=== PATIENT | female | born 1985 | race Caucasian/White ===

== ENCOUNTER 2025-01-31 14:15 | Outpatient (AMB) | payer OTHER, SELFPAY ==
--- OUTSIDE RECORDS SUMMARY | 2025-01-29 13:30 | XMS_ITS | Encounter Summary ---
Author Organization [facility] [place] [address] Care Team Providers Care Gem Technician Name Role Phone Kirill Kim MD Primary Care Provider [phone] Reason for Visit * Imaging (Routine) - Authorized Specialty Diagnoses / Procedures Referred By Contac t Referred To Contact Cardiology Diagnoses Chest pressure Procedures Stress echocardiogram (TTE) exercise with PRN contrast, bubble, strain, and 3D order panel MN ECHOCARDIOGRAPHY TRANSTHORACIC 2D REST & STRESS W INTERPRETATION/REPORT MN ECHOCARDIOGRAPHY TRANSTHORACIC 2D REST & STRESS W/M-MODE MN DOPPLER ECHO COMPLETE MN ECHOCARDIOGRAPHY DOPPLER COLOR FLOW MAPPING MN CV TMST/BIKE MAX/SUBMAX CONTINUOUS ECG MON/PHARM STRESS SUPVSR ONLY MN TEST STRESS CARDIOVASCULAR TRACING ONLY MN CV STRESS TEST/BIKE CONT ECG MON/PHARM STRESS INTERP & REPORT ONLY Manny Collins MD Phone: tel: fax: [facility] Referral ID Status Reason Start Date Expiration Date V isits Requested Visits Authorized [id number] Authorized 01/09/2025 01/09/2026 1 1 Encounter Details Date Type Department Care Team (Late st Contact Info) Description 01/29/2025 1:30 PM EDT Ancillary Procedure [facility] - [address] [place] [address] Chest pressure Social History Tobacco Use Types Packs/Day Years Used Date Smoking Tobacco: Some Days Cigarettes Last attempted to quit: 04/02/2014 Smokeless Tobacco: Never Alcohol Use Standard Drinks/Week Comments Yes 1.7 (1 standard drink = 0.6 oz p ure alcohol) Housing Instability Answer Date Recorde d Are you worried that in the next 2 months you may not have stable housing? Patient declined 12/16/2024 Food Access & Nutrition Answer Date Rec orded Do you have access to a vari ety of food including fruits and vegetables? Patient declined 12/16/2024 Access to Healthcare Answer Date Record ed Within the last 3 months, ho w many times did you visit the emergency department for your medical care? 0 12/16/2024 Health Literacy Answer Date Recorded How often do you need to hav e someone help you when you read instructions, pamphlets, or other written material from your doctor or pharmacy? Never 12/16/2024 Caregiver: How often do you need to have someone help you when you read instructions, pamphlets, or other written material from your doctor or pharmacy? Not on file 12/16/2024 Financial Risk Answer Date Recorded How hard is it for you to pa y for the very basics like food, housing, medical care, and air conditioning / heating? Somewhat hard 12/16/2024 Transportation Answer Date Recorded Has the lack of transportati on kept you from meetings, work, or from getting things needed for daily living? Patient declined 12/16/2024 Has the lack of transportati on kept you from medical appointments or from getting medications? Patient declined 12/16/2024 Social Isolation Answer Date Recorded How often do you feel lonely or isolated from those around you? Patient declined 12/16/2024 Food Risk Answer Date Recorded Within the past 12 months we worried whether our food would run out before we got money to buy more. Patient declined 025 Within the past 12 months th e food we bought just didn't last and we didn't have money to get more. Patient declined 12/01 Dependent Care Answer Date Recorded Do you need help finding or paying for care for your loved ones. For example, child welfare assistant or elderly care for an older adult? No 12/16/2024 Education Answer Date Recorded Do you think completing more education or training, like finishing a GED, going to college, or learning a trade, would be helpful for you? Patient declined 12/16/2024 Employment and Income Answer Date Recor ded During the last four weeks, have you been actively looking for work? Patient declined 12/16/2024 Living Situation Answer Date Recorded What is your living situation? Unrecognized valu e 12/16/2024 Comments Unknown Sex and Gender Information Value Date Recorded Sex Assigned at Female 12/19/2024 9:28 PM EDT Legal Sex Female 12:06 AM EST Gender Identity Female 09/26/2024 8:08 AM EDT Sexual Orientation Not on file documented as of this encounter Last Filed Vital Signs Vital Sign Reading Time Taken Comments Blood Pressure 132/82 01/29/2025 2:24 PM EDT Pulse - - Temperature - - Respiratory Rate - - Oxygen Saturation - - Inhaled Oxygen Concentration - - Weight 74.4 kg (164 lb) 01/29/2025 2:24 PM EDT Height 154.9 cm (5' 1 ) 01/29/2025 2:24 PM EDT Body Mass Index 30.99 01/29/2025 2:24 PM EDT documented in this encounter Plan of Treatment Upcoming Encounters Date Type Department Care Team (Late st Contact Info) Description 02/14/2025 3:00 PM EDT Office Visit Internal Medicine - [address] [place] [address] Jw Phillips, [address] [place] [address] documented as of this encounter Procedures Procedure Name Priority Date/Time Associated Diagnosis Comments STRESS ECHOCARDIOGRAM EXERCISE Routine 01/29/2025 2:26 PM EDT Chest pressure documented in this encounter Results * STRESS ECHOCARDIOGRAM EXERCISE (01/29/2025 2:26 PM EDT) IVSD 0.8 0.6 - 0.9 cm CV PACS STRESS LVIDD 3.8 3.8 - 5.2 cm CV PACS STRESS LVIDS 2.3 2.2 - 3.5 cm CV PACS STRESS LVPWD 0.8 0.6 - 0.9 cm CV PACS STRESS Relative Wall Thickness ratio 0.42 CV PACS STRESS FS 39 % CV PACS STRESS LV Mass 2D 86 g CV PACS STRESS LVIDD Index 2.18 cm/m2 CV PACS STRESS LVIDS Index 1.32 cm/m2 CV PACS STRESS LV Mass Index 2D 49 g/m2 CV PACS STRESS BSA 1.79 m2 CV PACS STRESS Target HR 153 bpm CV PACS STRESS Exercise/inject ion duration (min) 6 min CV PACS STRESS Exercise/inject ion duration (sec) 0 sec CV PACS STRESS Baseline HR 102 bpm CV PACS STRESS Peak HR 157 bpm CV PACS STRESS Estimated workload 7.1 METS CV PACS STRESS Percent HR 87 % CV PACS STRESS Max HR Percent 87 % CV PA CS STRESS ST Depression (mm) 0 mm CV PACS STRESS Baseline SBP 128 mmHg CV PACS STRESS Baseline DBP 82 mmHg CV PACS STRESS Peak SBP 144 mmHg CV PACS STRESS Peak DBP 62 mmHg CV PACS STRESS Rate Pressure Product 22,608.0 mmHg*bpm CV PACS STRESS Anatomical Region Laterality Modality Ultrasound Narrative 01/30/2025 1:18 PM EDT Normal exercise echocardiogram stress test at a target heart rate. Stress ECG was normal. Resting echo see below. The calcified structure adjacent to lateral right atrial wall beneath tricuspid valve is again visualized. Left Ventricle Left ventricle cavity size is normal. Wall thickness is normal. Systolic function is normal with an ejection fraction of 55-60%. There are no regional LV wall motion abnormalities. Right Ventricle Right ventricle cavity appears normal. Systolic function is normal. Right Atrium Right atrium cavity is normal. The calcified structure adjacent to lateral right atrial wall beneath tricuspid valve is again visualized. Study Details Overall the study quality was technically difficult. Patient declined use of left ventricular opacification agent to enhance imaging. Study was difficult due to: patient body habitus. Stress Findings A Maxwell protocol stress test was performed. Overall, the patient's exercise capacity was below average. The patient reached stage 2. Total stress time was 6 min and 0 sec. The test was stopped because the patient experienced fatigue. Blood pressure demonstrated a normal response. Heart rate demonstrated a normal response. Patient had constant chest discomfort prior to arrival which did not change throughout the testing ECG 39-year-old female with history of pulmonary embolism, right-sided breast cancer, and history of blood clot in the right atrium. In 2018 there was a discrete mass adjacent to the tricuspid valve which was thought to be structure left or from the Port-A-Cath. It was believed that the structure had become calcified and fibrotic. Patient presents today for stress echocardiogram to evaluate exertional shortness of breath and persistent chest discomfort. The ECG shows sinus tachycardia. The ECG axis is normal. There were no arrhythmias during stress. There is no ST segment changes during stress. There were no arrhythmias during recovery. There were no ST changes. The result of the stress ECG was negative for ischemia. Echo Post Stress Left ventricular cavity size decreased from baseline. Left ventricular systolic function improved from baseline. Normal wall motion, unchanged from baseline. us Manny Collins MD CV ECHO PROCEDURES Final Result documented in this encounter Visit Diagnoses Diagnosis Chest pressure Other chest pain documented in this encounter Additional Health Concerns Assessment Noted Time PHQ-9 Depression Total Score: 13 12/19/ 025 3:33 PM EDT documented as of this encounter Care Teams Gem Technician Relationship Specialty Start Date End Date Kirill Kim MD [address] [place] [address] PCP - General Internal Medicine 09/22/24 documented as of this encounter
--- NOTE | 2025-01-31 14:20 | A.OFFVIS_ITS ---
Vital Signs 3 01/31/25 14:23 Height 5 ft 1 in Weight 163 lb 8 oz BMI 30.9 BP 128/90 H Blood Pressure Location Rt brachial Position Sitting Pulse 96 Pulse Source Pulse Oximeter Pulse Oximetry (%) 97 Oxygen Delivery Method Room Air Intake Visit Reasons: Bronchitis Allergies doxycycline Allergy (Intermediate, Verified 01/31/25 14:26) Rash soy Allergy (Verified 01/31/25 14:26) Anaphylaxis nuts Allergy (Unknown, Uncoded 01/31/25 14:26) Unknown HPI HPI Bronchitis: Details: Elly is a pleasant 39 year old female, current 15 pack year smoker, with underlying h/o unprovoked PE completed coumadin x 1 year(?2012), right breast cancer 2017 s/p surg/chemo/rad (Dr Chris). She was referred by PCP for pulmonary evaluation for abnormal finding on chest CT. She was seen at an urgent care on 12/11 prescribed prednisone, mucinex and albuterol MDI for bronchitis. CXR revealed nodular opacity of LLL with recommendations for chest CT which she had performed on 12/22 and revealed small ggo of FORTINO, RML and RLL, ultimately diagnosed pneumonia requiring antibiotics. She experienced adverse reactions to prednisone, including increased heart rate, and was unable to tolerate it. Her respiratory symptoms have improved, but she continues to experience a morning cough with clear mucus production. Denies any dyspnea or wheezing. Denies prior history of asthma or COPD. She reports 2 occurrences of blood clots 1 unprovoked PE treated with Coumadin as well as another blood clot related to Port-A-Cath placement while under treatment for breast cancer. She is under the care of Hematology/Oncology at [facility] in reportedly underwent hypercoagulable workup which was unremarkable. She reports abnormal finding of tricuspid valve calcification and is under the care of cardiology at [facility] underwent echo and stress test which were unremarkable and will plan to have cardiac MRI for further evaluation. She has a history of breast cancer treated with chemotherapy, radiation, and surgery on the right side. The patient is currently experiencing perimenopausal symptoms, including night sweats and weight loss, attributed to stress and previous cancer treatments. The patient has a significant smoking history, having smoked for approximately 15 years, and reports occasional smoking currently. She also reports allergies and has a dog at home, with previous allergy testing done years ago. Denies any pertinent family history. [facility] Social History (Updated 01/31/25 @ 14:25 by Suzie Akhtar CMA) Patient Tobacco Use Status: Current everyday Tobacco user Cigarette Packs Per Day: 0.5 Cigarettes Per Day: 10 Review of Systems Const Denies chills, Denies excessive sweating, Denies fever(s), Denies headache(s) and Denies night sweats Eyes Denies dry eyes, Denies irritation and Denies itchy eyes ENT Reports Normal hearing present, Denies headache(s), Reports nasal discharge and Reports post nasal drip Card Denies chest pain, Denies chest pain at rest, Denies chest pain with activity, Denies claudication, Denies leg edema, Denies dyspnea, Denies dyspnea on exertion, Denies orthopnea and Denies paroxysmal nocturnal dyspnea Resp Denies change in phlegm color, Denies chest congestion, Reports cough, Denies excessive phlegm production, Denies pain on inspiration, Denies pain with cough, Denies dyspnea, Denies dyspnea on exertion, Denies stridor and Denies wheezing Musc Denies myalgias Neuro Reports Normal hearing present and Denies headache(s) Endo Denies excessive sweating Edu/Lymph Denies lymphadenopathy Aller/Immun Denies itchy eyes, Denies seasonal rhinorrhea and Denies wheezing Physical Exam Vital Signs: Last Vital Signs Pulse 96 01/31/25 14:23 BP 128/90 H 01/31/25 14:23 Pulse Ox 97 01/31/25 14:23 Oxygen Delivery Method Room Air 01/31/25 14:23 BMI result Body Mass Index 30.9 Const General: cooperative, healthy appearing, comfortable, no acute distress, well developed and alert Nutritional Appearance: obese Orientation/consciousness: patient oriented x3 Limitations: no limitations HEENT Head: Yes normal to inspection, Yes normocephalic and Yes atraumatic Ears: hearing grossly normal bilaterally and external ears normal Eyes General: appearance normal, both eyes and all related structures Eyelids: Yes eyelids normal Sclerae: sclerae normal EOM: EOMs intact bilaterally Neck Neck: Yes normal visual inspection and Yes no lymphadenopathy Lymphatic: no lymphadenopathy noted Chest Chest palpation & inspection: normal inspection of the chest Resp Effort & Inspection: normal respiratory effort, able to speak in complete sentences, no audible wheezes, no cough, no stridor, not tachypneic, no tripod positioning and no use of accessory muscles Auscultation: clear to auscultation bilaterally Cardio Jugular venous distension: no JVD Rate: regular rate Rhythm: regular rhythm Skin Other: warm, dry General skin exam: no rashes or lesions noted Neuro General: patient oriented x3 Cranial nerves: Yes Normal hearing present Cognition (Neuro): normal cognition Gait exam (Neuro): Normal gait present Extrem General: Yes normal to inspection, Yes capillary refill normal, Yes no clubbing, cyanosis or edema and Yes no pedal edema Psych Appearance: grossly normal and well kempt Speech and movement: Normal speech and movement present and Clear speech present Affect: normal affect Attitude: cooperative Thought process: Normal thought process present Thought content: Normal thought content present Insight: Good insight present (Psych) Judgement: Good judgement present (Psych) Results Reviewed Results Reviewed: Assessment & Plan Assessment & Plan (1) Chronic cough: Code(s): R05.3 - Chronic cough Category: Medical (2) Environmental allergies: Code(s): Z91.09 - Other allergy status, other than to drugs and biological substances Category: Medical (3) Ground glass opacity present on imaging of lung: Code(s): R91.8 - Other nonspecific abnormal finding of lung field Category: Medical Plan Elly presents for pulmonary evaluation after recent chest CT revealed multiple ground-glass opacities, likely related to recent pneumonia which she was treated for and had significant improvement in symptoms. Will repeat chest CT to assess for resolution, she is requesting this order be sent to [facility]. Will also attempt to obtain images for review. She reports ongoing productive cough with clear sputum in history of bronchitis, possibly related to underlying asthma or smoking history. Will send for PFT for further evaluation, with levalbuterol as patient has difficulty tolerating albuterol. Likely some allergic component, will send for RAST testing. Advised the patient on the importance of smoking cessation and offered support for quitting, however not ready at this time. All questions were answered and patient is in agreement of plan. Will follow-up to review results or sooner if needed. Orders: Orders 2 Complete Blood Count Auto Diff 01/31/25 Z91.09 - Other allergy status, other than to drugs and biological substances CT chest wo IV con Today R91.8 - Other nonspecific abnormal finding of lung field PFT pulmonary function test Today R05.3 - Chronic cough Resp Allergy Profile Region I 01/31/25 Z91.09 - Other allergy status, other than to drugs and biological substances Immunoglobulin E 01/31/25 Z91.09 - Other allergy status, other than to drugs and biological substances Coding Level of Care Code New Pt Level 4 (44254) Diagnoses Chronic cough R05.3 Environmental allergies Z91.09 Ground glass opacity present on imaging of lung R91.8
[2025-01-31 14:23] VITALS: BP 128/90; PULSE 96; O2SAT 97; BMI 30.9
--- OUTSIDE RECORDS SUMMARY | 2025-01-31 15:29 | XMS_ITS | Encounter Summary ---
Author Organization [facility] [place] [address] Care Team Providers Care Freelance Photographer Name Role Phone Kirill Kim MD Primary Care Provider [phone] Reason for Visit * Reason Onset Date Comments Cardiac Valve Problem 01/02/2025 Encounter Details Date Type Department Care Team (Late st Contact Info) Description 01/02/2025 Telephone Internal Medicine - [address] [place] [address] Kirill Kim MD [address] [place] [address] Social History Tobacco Use Types Packs/Day Years [...] care for your loved ones. For example, child's nurse or elderly care for an older adult? [...] on file documented as of this encounter Progress Notes * Lynette Moctezuma MA - 01/02/2025 2:37 PM EDT Pt notified letter done. Sent to My Chart for pt. * Jeanine Scott NP - 01/02/2025 2:23 PM EDT Signed * Suzie Roca MA - 01/02/2025 1:32 PM EDT Letter pended for review. * Jeanine Scott NP - 01/02/2025 12:25 PM EDT Please set up the letter * Liz Barahona RN - 01/02/2025 10:16 AM EDT RN called and spoke to the patient who is concerned about the ECHO and she is worried it should happen stat. Patient going to [facility] on Friday 01/05 for her ECHO and her referral was marked STAT> Patient reported that the appt for Wednesday is the earliest she can get. The patient was advised if she is having worsening or new concerns she can go to the ER. The patient at this time will wait for her Wednesday appointment. The patient is also asking for an extension on her work note for next week, she reports her cough is getting a little better but every time she coughs she urinates slightly and would prefer to not goback to work until after the echo. Will send to covering provider who saw patient on 12/19 Jeanine Scott. * Harleen Ward - 01/02/2025 9:40 AM EDT Symptoms patient is presenting: pt c/o continued cardiac issues (pt has appt @ [facility] 01-05-25 for an echo) and feels that she can't wait that long for the echo. For ALL patients calling to schedule any appointment (routine, sick visit, follow up, consult, etc.) in the outpatient setting please ask the following questions: Do you have fever of higher than 101, sore throat with difficulty swallowing or severe shortness ofbreath? NO If YES to any of these above symptoms, send a message to triage and do not book. Red dot. If no, an audio or video visit should be booked. Have you had close contact with someone with Coronavirus in the last 14 days? NO Have you traveled abroad? NO Have you traveled recently to another state outside of [place], [place], [place], [place], [place], [place], [place]? NO o If yes, did you quarantine for 14 days or have a negative covid test? NO If yes to any of the above, patient is not to be scheduled in office until after 14 day quarantine or negative covid test. If pain or injury related was it due to an accident at work or from a motor vehicle accident? NO If yes, gather [employer] insurance information Date of accident/Injury: n/a How long has patient had these symptoms?: ongoing PCP: Dr Kim Payor: Wilfredo documented in this encounter Plan of Treatment Upcoming Encounters Date Type Department Care Team (Late st Contact Info) Description 02/14/2025 3:00 PM EDT Office Visit [facility] Medicine - [address] [address] Jw Phillips, [address] [place] [address] documented as of this encounter Visit Diagnoses Not on filedocumented in this encounter Additional Health Concerns Assessment Noted Time PHQ-9 Depression Total Score: 13 025 3:33 PM EDT documented as of this encounter Care Teams Freelance Photographer Relationship Specialty Start Date End Date Kirill Kim MD [address] [place] [address] [place] [address] PCP - General Internal Medicine 09/22/24 documented as of this encounter
--- OUTSIDE RECORDS SUMMARY | 2025-01-31 15:29 | XMS_ITS | Encounter Summary ---
Author Organization [facility] [place] [address] Care Team Providers Care Crusher Feeder Name Role Phone Kirill Kim MD Primary Care Provider [phone] Reason for Referral * Imaging (Routine) - Pending Review Specialty Diagnoses / Procedures Referred By Jesica t Referred To Contact Radiology Diagnoses Right atrial mass Procedures MR Cardiac Morphology and Function wo and w Contrast Manny Collins MD Phone: tel: fax: External Performed Referral ID Status Reason Start Date Expiration Date V isits Requested Visits Authorized [id number] Pending Review 01/30/2025 01/30/2026 1 1 Encounter Details Date Type Department Care Team (Late st Contact Info) Description 01/30/2025 Results Follow-Up [facility] - [address] [place] [address] Manny Collins MD [address] [place] [address] Social History Tobacco Use Types Packs/Day Years [...] care for your loved ones. For example, summer child caregiver or elderly care for an older adult? [...] on file documented as of this encounter Plan of Treatment Upcoming Encounters Date Type Department Care Team (Late st Contact Info) Description 02/14/2025 3:00 PM EDT Office Visit Internal Medicine - [facility] [address] [place] [address] Jw Phillips, [address] [place] [address] Scheduled Orders Name Type Priority Associated Diagnoses Orde r Schedule MR Cardiac Morphology and Function wo and w Contrast Cardiac CT/MRI Routine Right atrial mass Ordered: 01/30/2025 documented as of this encounter Visit Diagnoses Diagnosis Right atrial mass- Primary documented in this encounter Additional Health Concerns Assessment Noted Time PHQ-9 Depression Total Score: 13 025 3:33 PM EDT documented as of this encounter Care Teams Crusher Feeder Relationship Specialty Start Date End Date Kirill Kim MD [address] [place] [address] PCP - General Internal Medicine 09/22/24 documented as of this encounter
--- OUTSIDE RECORDS SUMMARY | 2025-01-31 15:29 | XMS_ITS | Encounter Summary ---
[facility] [address] Care Team Providers Care Component Technician Name Role Phone Kirill Kim MD Primary Care Provider [phone] Reason for Visit * Reason Onset Date Comments Medical Records 01/29/2025 Encounter Details Date Type Department Care Team (Late st Contact Info) Description 01/29/[address] [facility] Cardiology [facility] [address] [place] [address] Provider, Not In System Social History Tobacco Use Types Packs/Day Years [...] your loved ones. For example, child welfare caseworker or elderly care for an older adult? [...] as of this encounter Progress Notes * Ayanna Arzate - 01/29/2025 9:58 AM EDT Mailed 01/05/2025 Echo, 01/09/2025 Dr. Collnis OV, 01/22/2025 [facility]. Testing, 07/15/2017 Echo, 11/11/2016 Echo and 12/21/2016 Echo to Patient on 01/26/2025. documented in this encounter Plan of Treatment Upcoming Encounters Date Type Department Care Team (Late st Contact Info) Description 02/14/2025 3:00 PM EDT Office Visit Internal Medicine - [facility] [address] [place] [address] Jw Phillips, [place] [address] [place] [address] documented as of this encounter Visit Diagnoses Not on filedocumented in this encounter Additional Health Concerns Assessment Noted Time PHQ-9 Depression Total Score: 13 025 3:33 PM EDT documented as of this encounter Care Teams Component Technician Relationship Specialty Start Date End Date Kirill Kim MD [address] [place] [address] PCP - General Internal Medicine 09/22/24 documented as of this encounter
--- OUTSIDE RECORDS SUMMARY | 2025-01-31 15:29 | XMS_ITS | Encounter Summary ---
Author Organization [facility] [address] Care Team Providers Care Accounting Manager Controller Name Role Phone Kirill Kim MD Primary Care Provider [phone] Reason for Visit * Reason Onset Date Comments Appointment 01/11/2025 Encounter Details Date Type Department Care Team ([facility] st Contact Info) Description 01/11/2025 Telephone [facility] - [facility] [address] [facility] [address] [place] [id number] Manny Collins MD [address] [facility] [address] [place] [address] Social History Tobacco Use Types Packs/Day Years [...] for your loved ones. For example, child care development specialist or elderly care for an older adult? [...] as of this encounter Progress Notes * Suzy Manningdavid - 01/11/2025 7:54 AM EDT I left a message for the patient to offer the Vasc appt that is open today at 12:45pm. I told her to call back JACKY and we can get her in. documented in this encounter Plan of Treatment Upcoming Encounters Date Type Department Care Team (Late st Contact Info) Description 02/14/2025 3:00 PM EDT Office Visit Internal Medicine - [facility] [address] [place] [address] Jw Phillips, ORLIN [address] [place] [address] documented as of this encounter Visit Diagnoses Not on filedocumented in this encounter Additional Health Concerns Assessment Noted Time PHQ-9 Depression Total Score: 13 025 3:33 PM EDT documented as of this encounter Care Teams Accounting Manager Controller Relationship Specialty Start Date End Date Kirill Kim MD [address] [place] [address] PCP - General Internal Medicine 09/22/24 documented as of this encounter
--- OUTSIDE RECORDS SUMMARY | 2025-01-31 15:29 | XMS_ITS ---
Author Name [facility] Organization Unknown Care Team Organization Name Specialty Phone Email Start Date End [facility] Kirill Kim Primary Care 03/10/20222023
--- OUTSIDE RECORDS SUMMARY | 2025-01-31 15:29 | XMS_ITS | Encounter Summary ---
Author Organization [facility] [place] [address] Care Team Providers Care Chick Sexer Name Role Phone Kirill Kim MD Primary Care Provider [phone] Reason for Referral * Imaging (Emergency) - Authorized Specialty Diagnoses / Procedures Referred By Contac t Referred To Contact Cardiology Diagnoses Calcification of tricuspid valve Procedures Transthoracic echocardiogram (TTE) complete with PRN contrast, bubble, strain, and 3D order panel TX TTE W 2D IMAGE COMPLETE W DOPPLER ECHO & COLOR FLOW DOPPLER ECHO TX CHRISTOPHER 2D COMPLETE W/CONTRAST OR W & WO CONTRAST WITH DOPPLER Andrew Wilcox PA [address] [place] [address] Phone: tel: fax: [facility] Referral ID Status Reason Start Date Expiration Date V isits Requested Visits Authorized [id number] Authorized 12/28/2024 12/28/2025 1 1 Reason for Visit * Reason Onset Date Comments orders call 12/28/2024 Encounter Details Date Type Department Care Team (Late st Contact Info) Description 12/28/2024 Telephone Internal Medicine - [facility] [address] [place], [place] [phone] Kirill Kim MD [address] [facility] [place] [address] Social History Tobacco Use Types Packs/Day Years [...] have money to get more. Patient declined 08/1 10/2024 Dependent Care Answer Date Recorded Do you need help finding or paying for care for your loved ones. For example, child care aide or elderly care for an older adult? [...] Progress Notes * Lynette Moctezuma MA - 12/28/2024 4:16 PM EDT Pt notified referral sent * ORVILLE Dalton - 12/28/2024 4:12 PM EDT Order updated * Marimar Natarajan MA - 12/28/2024 3:10 PM EDT Order pended. * Bettye Tran - 12/28/2024 3:06 PM EDT Cardiovascular echocardiogram ordered bu Dr Kim has to be marked urgent or pt will have to wait 13 weeks to get in documented in this encounter Plan of Treatment Upcoming Encounters Date Type Department Care Team (Late st Contact Info) Description 02/14/2025 3:00 PM EDT Office Visit Internal Medicine - [facility] [address] [facility] [place] [address] Jw Phillips, [employer] [address] [place] [address] documented as of this encounter Results * TRANSTHORACIC ECHOCARDIOGRAM (TTE) COMPLETE (01/05/2025 1:17 PM EDT) Left Atrium Minor Grundy 4.5 cm CV PACS Left Atrium Major Grundy 4.7 cm CV PACS LA Area Sys (A2C) 12 cm2 CV PACS LA Area Sys (A4C) 14 cm2 CV PACS LA Volume (BP) 31 mL CV PACS LA Size 3.3 cm CV PACS RA Area 11.4 cm2 CV PACS RA 2D Volume 26 mL CV PACS AV Mean Gradient 3 mmHg CV PACS Ao VTI 20.8 cm CV PACS AV Peak Jordan 1.2 m/s CV PACS AV Peak Gradient 6 mmHg CV PACS AV Area Continuity Equation 1.9 cm2 CV PACS AV Area Peak Velocity 1.9 cm2 CV PACS Aortic Arch 2.2 cm CV PACS Ascending Aorta 3.2 cm CV PACS Aortic Sinus Valsalva 3.2 cm CV PACS IVC Proximal 1.7 cm CV PACS IVSD 0.7 0.6 - 0.9 cm CV PACS LVIDD 4.4 3.8 - 5.2 cm CV PACS LVIDS 2.9 2.2 - 3.5 cm CV PACS LVOT Diameter 1.8 cm CV PACS LVOT Mean Jordan 0.6 m/s CV PACS LVOT Mean Grad 2 mmHg CV PACS LVOT Mean Grad 2 mmHg CV PACS LVOT Peak VTI 15.7 cm CV PACS LVOT Peak Jordan 0.9 m/s CV PACS LVOT Peak Gradient 3 mmHg CV PACS LVPWD 0.7 0.6 - 0.9 cm CV PACS MV E' Tissue Velocity Lateral 12 cm/s CV PACS MV E' Tissue Velocity Septal 8 cm/s CV PACS LVOT Area 2.5 cm2 CV PACS LVOT Stroke Volume 40 mL CV PACS MV Deceleration Cannon 3.7 m/s2 CV PACS E Wave Deceleration Time 150 119 - 242 ms CV PACS MV PHT 44 ms CV PACS MV Peak A Jordan 0.69 m/s CV PACS MV Peak E Jordan 0.56 m/s CV PACS MV Mean Gradient 1 mmHg CV PACS MV Mean Gradient 1 mmHg CV PACS MV Mean Gradient 1 mmHg CV PACS MV Mean Gradient 1 mmHg CV PACS MV VTI 15.9 cm CV PACS Mitral Valve Max Velocity 0.8 m/s CV PACS MV Peak Gradient 2 mmHg CV PACS MV Area PHT 5.0 cm2 CV PACS MV Area Continuity Equation 2.5 cm2 CV PACS PV Acceleration Time 116 ms CV PACS PV Acceleration Time 109 ms CV PACS PV Acceleration Time 113 ms CV PACS PV Mean Gradient 1 mmHg CV PACS PV VTI 10.7 cm CV PACS PV Peak Velocity 0.8 m/s CV PACS PV Peak Gradient 2 mmHg CV PACS RV Diastolic Basal Dimension 2.9 2.5 - 4.1 cm CV PACS RV S' 9 cm/s CV PACS TAPSE 15 mm CV PACS E/E' Ratio Septal 7 CV PACS E/E' Ratio Averaged 6 CV PACS Relative Wall Thickness ratio 0.32 CV PACS LVOT:AV VTI Index 0.75 CV PACS FS 34 % CV PACS LV Mass 2D 92 g CV PACS MV VTI:LVOT VTI ratio 1.0 CV PACS LVOT flow 153 mL/s CV PACS AV Velocity Ratio 0.75 CV PACS E/A Ratio 0.8 CV PACS E/E' Ratio Lateral 5 CV PACS BSA 1.78 m2 CV PACS LA Volume Index (BP) 18 mL/m2 CV PACS LVIDD Index 2.54 cm/m2 CV PACS LVIDS Index 1.68 cm/m2 CV PACS LV Mass Index 2D 53 44 - 88 g/m2 CV PACS LVOT Stroke Index 23 mL/m2 CV PACS LA Dimension Index 2D 1.9 cm/m2 CV PACS RA 2D Volume Index 15 15 - 27 mL/m2 CV PACS ROSENDO Index (VTI) 1.11 cm2/m2 CV PACS ROSENDO Index (Pk Jordan) 1.10 cm2/m2 CV PACS Ascending Aorta Index 1.85 cm/m2 CV PACS Est. RA Pressure 3 mmHg CV PACS Anatomical Region Laterality Modality Ultrasound Narrative 01/05/2025 3:16 PM EDT Normal biventricular size and systolic function. Normal left ventricular regional wall motion with an ejection fraction of 60 to 65% Normal left ventricular diastolic function No hemodynamically significant valve disease. There is an irregularly shaped, heterogenous, predominantly calcified echodensity seen at the right atrium coming in and out of the plane of view that appears adherent to the interatrial septum at its posterior aspect. Differential includes calcified thrombus versus intracardiac mass/tumor. Less likely, this represents a remnant of some sort of catheter or indwelling device versus a vegetation. High-priority staff message sent to Andrew Wilcox recommending a cardiology consult for additional imaging-CHRISTOPHER versus cardiac MR versus both. Left Ventricle Left ventricle cavity size is normal. Wall thickness is normal. Systolic function is normal with an ejection fraction of 60-65%. There are no regional LV wall motion abnormalities. There is no diastolic dysfunction and normal left atrial pressure. Right Ventricle Right ventricle cavity appears normal. Left Atrium Left atrium cavity size is normal. Right Atrium Right atrium cavity is normal. 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 It is seen proximal to the tricuspid valve. It does not appear adherent to the valve at all. It does not interfere with valve function or motion. It is difficult to get accurate measurements as the mass comes in and out of the plane of view. Differential includes intracardiac tumor, calcified thrombus versus less likely cardiac vegetation or remnant of prior catheter or indwelling device IVC/SVC Inferior vena cava structure is normal. RA pressures is estimated to be 3 mmHg (IVC diameter <21 mm and decreases >50% during inspiration). Mitral Valve Mitral valve structure is normal. The leaflets exhibit normal excursion. There is no regurgitation or stenosis. Tricuspid Valve Tricuspid valve structure is normal. There is no regurgitation or stenosis. Cannot assess RVSP. Aortic Valve Number of aortic valve cusps cannot be determined. The leaflets are mildly thickened. There is no regurgitation or stenosis. Pulmonic Valve Pulmonic valve structure is normal. There is no regurgitation or stenosis. Ascending Aorta The aorta appears normal in size. Pericardium Pericardium appears normal. There is no pericardial effusion. Study Details Overall the study quality was adequate. us Andrew JACINTO CV ECHO PROCEDURES Juju l Result documented in this encounter Visit Diagnoses Diagnosis Calcification of tricuspid valve- Primary Calcification of tricuspid valve documented in this encounter Additional Health Concerns Assessment Noted Time PHQ-9 Depression Total Score: 13 025 3:33 PM EDT documented as of this encounter Care Teams Chick Sexer Relationship Specialty Start Date End Date Kirill Kim MD [address] [place] [address] PCP - General Internal Medicine 09/22/24 documented as of this encounter
--- OUTSIDE RECORDS SUMMARY | 2025-01-31 15:29 | XMS_ITS | Clinical Summary ---
Author Organization [facility] Address [address] [place] [address] Care Team Providers Care Master In Chancery Name Role Phone Chuy Call MD Primary Care Provider [phone] Allergies Active Allergy Reactions Criticality Noted Date Comments Iodinated Contrast Media 11/27/2016 Nuts 04/02/2020 Soy 04/02/2020 Medications Medication Sig Dispensed Refills Start Date End Date Status escitalopram (LEXAPRO) tablet 10 mg Take 10 mg by mouth daily. 0 Active Loratadine (CLARITIN) 10 MG CAPS Take by mouth. 0 Active EPINEPHrine 0.3 MG/0.3ML SOAJ Inject 0.3 mg into the muscle as needed. 0 Active Active Problems No known active problems Family History Medical History Relation Name Comments Cancer Cousin Cancer Father prostate Hypertension Father Deep vein thrombosis Maternal Aunt Deep vein thrombosis Maternal Grandfather Deep vein thrombosis Maternal Grandmother Relation Name Status Comments Cousin Father Maternal Aunt Maternal Grandfather Maternal Grandmother Social History Tobacco Use Types Packs/Day Years Used Date Smoking Tobacco: Some Days Smokeless Tobacco: Never Alcohol Use Standard Drinks/Week Comments Yes 2 (1 standard drink = 0.6 oz pur e alcohol) Sex and Gender Information Value Date Recorded Sex Assigned at Not on file Gender Identity Not on file Sexual Orientation Not on file Last Filed Vital Signs Vital Sign Reading Time Taken Comments Blood Pressure 148/101 03/06/2020 1:57 PM EST Pulse 102 03/06/2020 1:57 PM EST Temperature 37 C (98.6 F) 03/06/2020 1:57 PM EST Respiratory Rate - - Oxygen Saturation - - Inhaled Oxygen Concentration - - Weight 83.7 kg (184 lb 9.6 oz) 03/06/2020 1:57 P M EST Height 154.9 cm (5' 1 ) 03/06/2020 1:57 PM EST Body Mass Index 34.88 03/06/2020 1:57 PM EST Plan of Treatment Health Maintenance Due Date Last Done Comments Hepatitis B Vaccines (1 of 3 - 3-dose series) 1984 Hepatitis C Screening 1984 COVID-19 Vaccine (#1) 1984 Pneumococcal Vaccine (1 of 2 - PCV) 1990 Depression Screening 1996 Preventative Health Evaluation 2002 DTap / Tdap / Td (2 - Tdap) 12/02/2002 12/01/2002 Cervical Cancer Screening (P ap Smear) 2005 Influenza Vaccine (#1) 2025 RSV Ped < 20 months Aged Out No longe r eligible based on patient's age to complete this topic Care Teams Master In Chancery Relationship Specialty Start Date End Date Chuy Call MD [address] [place] [address] PCP - General Internal Medicine 11/20/16
--- OUTSIDE RECORDS SUMMARY | 2025-01-31 15:29 | XMS_ITS | Clinical Summary ---
Author Organization [facility] Address [address] [place] [address] Phone Care Team Providers Care Motor Equipment Lieutenant Name Role Phone Kirlil Kim MD Primary Care Provider [phone] Allergies Active Allergy Reactions Criticality Noted Date Comments Amoxicillin-Pot Clavulanate Other 06/13/19 15 Abdominal pain Cefuroxime Other 06/13/2014 rash Doxycycline Rash 06/18/2023 Nut - Unspecified 06/13/2014 Other 11/05/2023 Soy 04/02/2020 Medications albuterol HFA (PROAIR HFA ; PROVENTIL HFA ; VENTOLIN HFA) 90 mcg/actuation inhaler Inhale 2 Puffs into the lungs every 6 hours as needed for Cough or Wheezing. 4 Active loratadine 10 mg capsule Take 1 Capsule by mouth daily. 4 Active EPINEPHrine (EpiPen 2-Damian) 0.3 mg/0.3 mL injection Inject 1 Each as directed as needed for Other (for nut or soy allergy). 1 Active budesonide (PULMICORT) 180 mcg/actuation inhaler Inhale 1 puff by mouth 2 (two) times a day. Rinse mouth with water after use to reduce aftertaste and incidence of candidiasis. Do not swallow. 1 each Active Additional Information Patient not taking.Informant: Self, Reported on 01/09/2025 amLODIPine (NORVASC) 2.5 mg tablet Take 1 tablet (2.5 mg total) by mouth 1 (one) time each day. 30 each 11 5 01/10/20 26 Active Active Problems Problem Noted Date Diagnosed Date Right atrial mass 01/09/2025 Assessment & Plan (01/09/2025 5:37 PM EDT): The right atrial mass is likely from previous Port-A-Cath. The echocardiogram from 2018 showed a discrete mass adjacent to the tricuspid valve and was probably a structure left over from the Port-A-Cath. With the time, the structure probably became calcified and fibrotic and formed a more calcified structure. She is very anxious about this and the will be better modality for further evaluation. Orders: Ambulatory referral to Cardiology ECG 12 lead Vascular US duplex upper extremity venous bilateral; Future Transesophageal echocardiogram (CHRISTOPHER) with PRN contrast and 3D; Future Elevated LFTs 12/02/2023 Mixed hyperlipidemia 12/02/2023 Assessment & Plan (01/09/2025 5:37 PM EDT): Will update lipid profile. Breast deformity 07/31/2020 Obesity 07/31/2020 Macromastia 07/22/2020 Abnormal echocardiogram 11/13/2016 Overview (04/14/2024): 11/16 CHRISTOPHER shows that the portacath enters the atrium and goes all the way across and touches the opposite wall. At this poin there is a growth of tissue around the portacath with some calcified looking parts within it. Either reactionary growth/pannus or clot with some calcification. 07/18echo: calcified mass still present in RA Apparently resolved with removal of portacath Anxiety 09/23/2015 Overweight 09/23/2015 Pulmonary embolism on left 05/12/2014 Overview (01/31/2025): Provoked; no snf anticoagulation recommended 01/31/25 Regulatory IMO Update Resolved Problems Problem Noted Date Diagnosed Date Resolved Date History of COVID-19 04/29/2021 04/14/20 24 Encounters Date Type Department Care Team Description 01/30/2025 Results Follow-Up [facility] - [address] [place] [address] Manny Collins MD 01/29/2025 1:30 PM EDT Ancillary Procedure [facility] - [address] [place] [address] Chest pressure 01/29/2025 Telephone [facility] - [address] [place] [address] Provider, Not In System 01/23/2025 10:45 AM EDT Telemedicine [facility] - [address] [place] [address] Kirill Kim MD Anxiety (Primary Dx) 01/22/2025 12:45 PM EDT Ancillary Procedure [facility] - [address] [place] [address] Right atrial mass; Chest pressure 01/15/2025 Telephone [facility] - [facility] [place] [address] Kirill Kim MD 01/15/2025 Telephone [facility] - [address] [place] [address] Manny Collins MD 01/11/2025 Telephone [facility] - [address] [place] [address] Manny Collins MD 01/10/2025 Telephone [facility] - [address] [place] [address] Kirill Kim MD 01/10/2025 Telephone [facility] - [address] [place] [address] Manny Collins MD 01/09/2025 1:00 PM EDT Office Visit [facility] - [address] [place] [address] Manny Collins MD Other hyperlipidemia (Primary Dx); Right atrial mass; Chest pressure; Mixed hyperlipidemia 01/05/2025 12:30 PM EDT Ancillary Procedure [facility] - [address] [place] [address] Calcification of tricuspid valve 01/02/2025 Telephone [facility] - [facility] [address] [place], [place] [phone] Kirill Kim MD 12/28/2024 Telephone [facility] - [address] [place], [place] [phone] Kirill Kim MD 12/27/2024 Telephone [facility] [address] [place], [place] [phone] Kirill Kim MD 12/25/2024 Telephone [facility] [address] [facility] [place] [place] [phone] Kirill Kim MD 12/22/2024 8:58 AM EDT - 12/22/2024 11:59 PM EDT Hospital Encounter [facility] CT Scan [address] [place] [address] Lung nodule seen on imaging study Discharge Disposition: Home or Self Care 12/19/2024 3:30 PM EDT Telemedicine [facility] - [facility] [address] [place], [place] [phone] Jeanine Scott NP Bronchitis (Primary Dx); Smoking addiction; Elevated blood pressure reading 12/16/2024 2:12 PM EDT - 12/16/2024 11:59 PM EDT Hospital Encounter [facility] [address] [facility] [place] [place] [phone] Acute cough Discharge Disposition: Home or Self Care 12/16/2024 2:00 PM EDT Office Visit [facility] - [address] [address] Thomas Reddy PA Bronchitis (Primary Dx) from Last 3 Months Immunizations Immunization Administration Dates Next Due Hepatitis B (Zgobvtz-R-Hwqoe , Recombivax HB-Adult) 19yo and older 07/26/1996,03/21/1996,02/16/1996 Measles 12/14/1996 Meningococcal Polysaccharide 01/09/2005 Td Tetanus diptheria (Tdvax) 7yo and older 12/01 Surgical History Surgery Date Site/Laterality Comments TONSILLECTOMY PROCEDURE: HISTORICAL TONSILLECTOMY BREAST BIOPSY 2016 Right PROCEDURE: BX BREAST; PERC NEEDLE CORE W/IMAG GUID OTHER SURGICAL HISTORY 03/13/16 PROCEDURE: ---- OTHER ----; COMMENT: port placement OTHER SURGICAL HISTORY 08/28/16 Right PROCEDURE: ---- OTHER ----; COMMENT: lumpectomy, sentinel node biopsy OTHER SURGICAL HISTORY 01/27/2017 PROCEDURE: ---- OTHER ----; COMMENT: port-a-cath removal Medical History Medical History Date Comments Breast cancer, stage 1 ([facility]/ HCC V24, [facility]/HCC V28) 02/20/2016 DX:Breast cancer, stage 1 ([facility]); COMMENT: triple negative Family History Medical History Relation Name Comments Other: pulmonary embolism Aunt mo thers side Hypertension Father CA prostate (ag e 51), atrial fibrillation Other: BCC Maternal Grandfather also italia ng, 70s Other: pulmonary embolism Maternal Grandmother No Known Problems Mother Breast cancer Other 1 3rd cousin-mat ernal Lung cancer Other 2 2 gr uncles and 1 gr aunt-all smokers, 70s Coronary artery disease Paternal Grandfather Diabetes Neg Hx Relation Name Status Comments Aunt Father Alive Afib, HTN Maternal Grandfather Maternal Grandmother Mother Alive Endometriosis, spinal fusion Other 1 Other 2 Paternal Grandfather Social History Tobacco Use Types Packs/Day Years Used Date Smoking Tobacco: Some Days Cigarettes Last attempted to quit: 04/02/2014 Smokeless Tobacco: Never Tobacco Cessation:Ready to Q uit: Not Asked; Counseling Given: Not Answered Alcohol Use Standard Drinks/Week Comments Yes 1.7 [...] for your loved ones. For example, child psychometrist or elderly care for an older adult? [...] AM EDT Sexual Orientation Not on file Obstetrics History Last Filed Vital Signs Vital Sign Reading Time Taken Comments Blood Pressure 132/82 01/29/2025 2:24 PM EDT Pulse 93 01/09/2025 1:01 PM EDT Temperature 37.2 C (98.9 F) 12/16/2024 1:57 PM EDT Respiratory Rate - - Oxygen Saturation 96% 01/09/2025 1:01 PM EDT Inhaled Oxygen Concentration - - Weight 74.4 kg (164 lb) 01/29/2025 2:24 PM EDT Height 154.9 cm (5' 1 ) 01/29/2025 2:24 PM EDT Body Mass Index 30.99 01/29/2025 2:24 PM EDT Plan of Treatment Upcoming Encounters Date Type Department Care Team (Late st Contact Info) Description 02/14/2025 3:00 PM EDT Office Visit [facility] - [facility] [address] [place] [phone] Jw Phillips, [address] [place] [address] Health Maintenance Due Date Last Done Comments Pneumococcal Vaccine: Pediatrics (0 to 5 Years) and At-Risk Patients (6 to 49 Years) (1 of 2 - PCV) 2003 Cervical Cancer Screening: Pap Smear 2005 HPV Vaccines (1 - 3-dose SCDM series) 2011 DTaP,Tdap,and Td Vaccines (2 - Td or Tdap) 12/01/2012 12/01/2002 HIV Screening 04/10/2022 Hepatitis C Screening 04/10/2022 Breast Cancer Screening 09/26/2023 09/25/2022 COVID-19 Vaccine ( season) 2025 01/15/2022, 05/14/2021, 12/31/2020, Additional history exists Influenza Vaccine (#1) 2025 02/06/2021 Social Influencers of Health Screening 12/16/2025 12/16/2024 Cholesterol Screening (Lipid Panel) 12/01/2028 12/02/2023, 12/02/2023 RSV Immunization Adult Patients (1 - 1-dose 75+ series) 2059 Hepatitis B Vaccines Completed 07/26/1996, 03/21/1996, 02/16/1996 Meningococcal ACWY Vaccine Aged Out 01/09/2005 N o longer eligible based on patient's age to complete this topic Depression Screening Completed 12/19/2024 HIB Vaccines Aged Out No longer eligi ble based on patient's age to complete this topic Hepatitis A Vaccines Aged Out No long er eligible based on patient's age to complete this topic IPV Vaccines Aged Out No longer eligi ble based on patient's age to complete this topic MMR Vaccines Aged Out No longer eligi ble based on patient's age to complete this topic Meningococcal B Vaccine Aged Out No l onger eligible based on patient's age to complete this topic RSV Immunization Patients Under 20 months Aged Out No longer eligible based on patient's age to complete this topic Varicella Vaccines Aged Out No longer eligible based on patient's age to complete this topic Medical Devices Implanted Type Area Food Cart Attendant Device Identifier Shelf Expiration Date Model / Serial / Lot Marker Breast Biopsy 15g Rigid Ti Barrel [employer]dromark - [id number] - [id number] Implanted:Qty: 1 on 09/27/2024 by Hubert Elena MD at [facility] Imaging Implants Right: Breast DEVICOR [employer] [id number] 03/10/2027 4010-02- 15-T1 / [id number] / [id number] Procedures Procedure Name Priority Date/Time Associated Diagnosis Comments STRESS ECHOCARDIOGRAM EXERCISE Routine 01/29/2025 2:26 PM EDT Chest pressure VAS US DUPLEX UPPER EXT VENOUS BILAT Routine 01/22/2025 1:15 PM EDT Right atrial mass Chest pressure ECG 12-LEAD Routine 01/09/2025 1:06 PM EDT Right atrial mass TRANSTHORACIC ECHOCARDIOGRAM (TTE) COMPLETE STAT 01/05/2025 1:17 PM EDT Calcification of tricuspid valve CT CHEST WO CONTRAST Routine 12/22/2024 9:16 AM EDT Lung nodule seen on imaging study XR CHEST 2 VIEWS STAT 12/16/2024 2:23 PM EDT Acute cough LIPID PANEL Routine 12/02/2023 DX MAMMO INCL CAD UNI Routine 09/25/2022 12:21 PM EDT Other abnormal and inconclusive findings on diagnostic imaging of breast from Last 3 Months or Most Recently Relevant to Health Maintenance Results * STRESS ECHOCARDIOGRAM EXERCISE (01/29/2025 2:26 [...] Collins MD CV ECHO PROCEDURES Final Result * Vascular US duplex upper extremity venous bilateral (01/22/2025 1:15 PM EDT) Anatomical Region Laterality Modality Vascular, Abdomen Ultrasound Narrative 01/25/2025 8:18 AM EDT Right: 1. No deep vein thrombosis. 2. No superficial vein thrombosis. Left: 1. No deep vein thrombosis. 2. No superficial vein thrombosis. Right Upper Venous No evidence of deep vein thrombosis in the internal jugular vein, subclavian vein, axillary vein, brachial veins, basilic vein, cephalic vein, radial veins, and ulnar veins of the right arm. The vessels showed compressibility with normal Doppler flow. Left Upper Venous No evidence of deep vein thrombosis in the internal jugular vein, subclavian vein, axillary vein, brachial veins, basilic vein, cephalic vein, radial veins, and ulnar veins of the left arm. The vessels showed compressibility with normal Doppler flow. Supply Clerk Details A reaves scale, color and doppler analysis ultrasound was performed. During the study longitudinal and transverse views were obtained. Pulsed wave doppler was performed. Manny Collins MD CV VASCULAR PROCEDURES Final Res ult * ECG 12 lead (01/09/2025 1:06 PM EDT) Ventricular Rate ECG 94 BPM GEMUSE Atrial Rate 94 BPM GEMUSE P-R Interval 160 ms GEMUSE QRS Duration 68 ms GEMUSE Q-T Interval 342 ms GEMUSE QTc 427 ms GEMUSE P Wave Newman 55 degrees GEMUSE R Newman 69 degrees GEMUSE T Newman 45 degrees GEMUSE ECG Interpretation Normal sinus rhythm Normal ECG No previous ECGs available Confirmed by Arminda COLLINS YUFENG ([id number]) on 01/09/2025 2:45:20 PM GEMUSE 01/09/2025 1:06 PM EDT 01/09/2025 2:45 PM EDT us Manny Collins MD ECG ORDERABLES Final Result GEMUSE * TRANSTHORACIC ECHOCARDIOGRAM (TTE) COMPLETE (01/05/2025 1:17 PM EDT) Left Atrium Minor Newman 4.5 cm CV PACS Left Atrium Major Newman 4.7 cm CV PACS LA Area Sys [...] Volume 40 mL CV PACS MV Deceleration [place] 3.7 m/s2 CV PACS E Wave Deceleration [...] JACINTO CV ECHO PROCEDURES Juju l Result * CT Chest wo Contrast (12/22/2024 9:16 AM EDT) Anatomical Region Laterality Modality Body Computed Tomogra phy 12/27/2024 12:3 0 PM EDT Impressions 12/27/2024 12:37 PM EDT 1. The finding described on the comparison radiographs was secondary to a prominent calcification in the region of the tricuspid valve. 2. Patchy groundglass opacities in both lungs suggestive of an infectious/inflammatory process. -------- FINAL REPORT -------- Dictated By: Edmund Duran Dictated Date: 12/27/2024 12:30 ET Assigned Physician: Edmund Duran Reviewed and Electronically Signed By: Edmund Duran Signed Date: 12/27/2024 12:37 ET Workstation ID: [id number] Transcribed By: Self Edit Transcribed Date: 12/27/2024 12:30 ET Narrative 12/27/2024 12:37 PM EDT PROCEDURE: CT of the chest without intravenous contrast. TECHNIQUE: CT of the chest without intravenous contrast administration. Coronal and sagittal reformats and MIP reconstructions were created. Dose length product: 217 mGy-cm. HISTORY: Abnormal xray - lung nodule, >= 1 cm Cough, persistent Lung nodule, 6-8mm COMPARISON: Radiograph dated 12/16/2024. FINDINGS: LUNGS/PLEURA: The central airways are clear and normal in caliber. There is mild bronchial wall thickening in the lower lobes. Linear opacities in the inferior left lower lobe and lingula suggestive of scarring and/or atelectasis. There are small areas of patchy groundglass opacity in the anterior left upper lobe, central right lower lobe, and medial right middle lobe. Small amount of curvilinear scarring or atelectasis in the medial right middle lobe. No suspicious pulmonary nodule. No pleural effusion or pneumothorax. MEDIASTINUM/TIM: No mediastinal mass or lymphadenopathy. No appreciable hilar lymphadenopathy on limited noncontrast evaluation. VASCULATURE: Normal caliber pulmonary arteries. Normal appearance of the aorta and great vessels. CARDIAC: Normal heart size. Minimal coronary artery calcification. Prominent calcification in the region of the tricuspid valve which is the etiology for the findings noted on the comparison radiographs. CHEST WALL: No axillary or supraclavicular lymphadenopathy. LIMITED ABDOMEN: Mild hepatic steatosis. BONES: Unremarkable. Procedure Note Edmund Duran MD - 12/27/2024 PROCEDURE: CT of the chest without intravenous contrast. TECHNIQUE: CT of the chest without intravenous contrast administration.Coronal and sagittal reformats and MIP reconstructions were created. Dose length product: 217 mGy-cm. HISTORY: Abnormal xray - lung nodule, >= 1 cm Cough, persistent Lung nodule, 6-8mm COMPARISON: Radiograph dated 12/16/2024. FINDINGS: LUNGS/PLEURA: The central airways are clear and normal in caliber. Thereis mild bronchial wall thickening in the lower lobes. Linear opacities inthe inferior left lower lobe and lingula suggestive of scarring and/oratelectasis. There are small areas of patchy groundglass opacity in theanterior left upper lobe, central right lower lobe, and medial rightmiddle lobe. Small amount of curvilinear scarring or atelectasis in themedial right middle lobe. No suspicious pulmonary nodule. No pleuraleffusion or pneumothorax. MEDIASTINUM/TIM: No mediastinal mass or lymphadenopathy. No appreciablehilar lymphadenopathy on limited noncontrast evaluation. VASCULATURE: Normal caliber pulmonary arteries. Normal appearance of theaorta and great vessels. CARDIAC: Normal heart size. Minimal coronary artery calcification.Prominent calcification in the region of the tricuspid valve which is theetiology for the findings noted on the comparison radiographs. CHEST WALL: No axillary or supraclavicular lymphadenopathy. LIMITED ABDOMEN: Mild hepatic steatosis. BONES: Unremarkable. IMPRESSION: 1. The finding described on the comparison radiographs was secondary to aprominent calcification in the region of the tricuspid valve. 2. Patchy groundglass opacities in both lungs suggestive of aninfectious/inflammatory process. -------- FINAL REPORT -------- Dictated By: Edmund Duran Dictated Date: 12/27/2024 12:30 ET Assigned Physician: Edmund Duran Reviewed and Electronically Signed By: Edmund Duran Signed Date: 12/27/2024 12:37 ET Workstation ID: [id number] Transcribed By: Self Edit Transcribed Date: 12/27/2024 12:30 ET us Kirill Kim MD IMG CT PROCEDURES Final Result * XR Chest 2 Views (12/16/2024 2:23 PM EDT) Anatomical Region Laterality Modality Body Radiographic Brynn ging 12/18/2024 9:14 AM EDT Narrative 12/18/2024 9:17 AM EDT Chest, 2 views. HISTORY: Cough for 10 days. Comparison with prior study from 06/09/2023. There is no evidence of pneumothorax, pleural effusions or congestive heart failure. There is small probably calcified nodular opacity in in the lower lung field visualized on the lateral view. It is new since previous examination. It is not clearly visible on PA view. No other focal parenchymal abnormalities are identified. Cardiomediastinal silhouette is unremarkable. CONCLUSIONS: New probable calcified nodular opacity in in the lower lung field on the lateral view. Chest CT is suggested for further assessment. A copy of this report will be provided to the [facility] [employer] Program. -------- FINAL REPORT -------- Dictated By: Marimar Valenzuela Dictated Date: 12/18/2024 09:14 ET Assigned Physician: Marimar Valenzuela Reviewed and Electronically Signed By: Marimar Valenzuela Signed Date: 12/18/2024 09:17 ET Workstation ID: [id number] Transcribed By: Self Edit Transcribed Date: 12/18/2024 09:14 ET Procedure Note Marimar Valenzuela MD - 12/18/2024 Chest, 2 views. HISTORY: Cough for 10 days. Comparison with prior study from 06/09/2023. There is no evidence of pneumothorax, pleural effusions or congestiveheart failure. There is small probably calcified nodular opacity in in thelower lung field visualized on the lateral view. It is new since previousexamination. It is not clearly visible on PA view. No other focalparenchymal abnormalities are identified. Cardiomediastinal silhouette isunremarkable. CONCLUSIONS: New probable calcified nodular opacity in in the lower lungfield on the lateral view. Chest CT is suggested for further assessment. Acopy of this report will be provided to the [facility] [employer] Program. -------- FINAL REPORT -------- Dictated By: Marimar Valenzuela Dictated Date: 12/18/2024 09:14 ET Assigned Physician: Marimar Valenzuela Reviewed and Electronically Signed By: Marimar Valenzuela Signed Date: 12/18/2024 09:17 ET Workstation ID: [id number] Transcribed By: Self Edit Transcribed Date: 12/18/2024 09:14 ET Thomas JACITNO IMG XR PROCEDURES Final Re sult * (ABNORMAL) Lipid panel (12/02/2023) LDL/HDL Ratio 4 0 - 4 Triglycerides 211(A) 0 - 150 mg/dL Cholesterol 292(A) 0 - 200 mg/dL HDL 81 >=40 mg/dL LDL Cholesterol 169(A) 0 - 100 mg/dL Blood Venous blood specimen / Unknown Historical Provider LAB BLOOD ORDERABLES Juju l Result * DX MAMMO INCL CAD UNI (09/25/2022 12:21 PM EDT) Anatomical Region Laterality Modality Mammography 09/10/2022 9:55 AM EDT Narrative 09/25/2022 12:40 PM EDT This is a summary report. The complete report is available in the patient's medical record. If you cannot access the medical record, please contact the sending organization for a detailed fax or copy. Please refer to the combined MRI guided core biopsy and diagnostic mammogram report. Procedure Note Jennifer Tapia MD - 06/08/2023 This is a summary report. The complete report is available in thepatient's medical record. If you cannot access the medical record, pleasecontact the sending organization for a detailed fax or copy. Please refer to the combined MRI guided core biopsy and diagnosticmammogram report. Miryam Ruby MD IMG BI PROCEDURES Final Result from Last 3 Months or Most Recently Relevant to Health Maintenance Insurance [facility] [place] [address] Care Teams Motor Equipment Lieutenant Relationship Specialty Start Date End Date Kirill Kim MD [address] [place] [address] PCP - General Internal Medicine 09/22/24
== END 2025-01-31 14:58 | disposition home or self-care (01) ==
LOC: HO.HPSW 14:16
PROVIDERS: PCP Nurse Practitioner; Referring Provider Nurse Practitioner; Visit Provider Nurse Practitioner Family
DX: R05.3 Chronic cough (principal); Z91.09 Other allergy status, other than to drugs and biological substances; R91.8 Other nonspecific abnormal finding of lung field
CPT/HCPCS: 99204

== ENCOUNTER → 2025-01-31 14:15 | Outpatient (BNVA) | payer OTHER, SELFPAY | PROVIDERS: PCP Nurse Practitioner; Referring Provider Nurse Practitioner; Visit Provider Nurse Practitioner Family | DX: J40 Bronchitis, not specified as acute or chronic (principal); R05.3 Chronic cough; Z91.09 Other allergy status, other than to drugs and biological substances; R91.8 Other nonspecific abnormal finding of lung field; F17.210 Nicotine dependence, cigarettes, uncomplicated | CPT/HCPCS: 99202 ==